=== PATIENT | male | born 1985 | race Caucasian/White ===

== ENCOUNTER 2017-12-08 17:51 | Emergency (ER) | payer BC ==
[~2017-12-08] VITALS: Ht 190.5 cm; Wt 84.1 kg
[2017-12-08 18:13] VITALS: Ht 190.5 cm; Wt 84.1 kg
[2017-12-08] MEDS ORDERED: MIRALAX527 GM PO (21:39)
[2017-12-08 22:05] VITALS: BP 122/82
== END 2017-12-08 22:06 | disposition home or self-care (01) ==
LOC: D.ER 17:51
DX: K59.00 Constipation, unspecified (principal); M54.5 Low back pain

== ENCOUNTER → 2018-03-11 18:20 | Outpatient (CLI) | payer BC ==
[2017-12-08 18:13] VITALS: BMI 23.1
[~2018-03-11 18:20] MED LIST: MIRALAX527 GM PO
== END | disposition home or self-care (01) ==
LOC: D.LABREF 18:20
PROVIDERS: Family Medicine
DX: K59.00 Constipation, unspecified (principal)

== ENCOUNTER 2019-01-24 18:34 | Observation (INO) | payer BC ==
[~2019-01-24] VITALS: Ht 190.5 cm; Wt 81.8 kg
[2019-01-24 19:52] LABS: BASOPHILS 0.3 % (0-2); EOSINOPHILS 7.8 % (0-7); HEMATOCRIT 44.6 % (42.0-54.0); HEMOGLOBIN 14.8 g/dL (13.5-17.5); IMMATURE GRANULOCYTES 0.2 % (0-5); LYMPHOCYTES 24.3 % (15-50); MCHC 33.2 g/dL (31.0-37.0); MCV 96.3 fL (80.0-100.0); MEAN PLATELET VOLUME 9.8 fL (7.4-10.4); MONOCYTES 10.4 % (2-11); PLATELET COUNT 245 10x3/uL (130-400); RBC 4.63 10x6/uL (4.20-6.10); RDW 12.9 % (11.5-14.5); WBC 9.7 10x3/uL (4.8-10.8)
[2019-01-24 20:05] LABS: APTT 31.6 SECONDS (22.8-39.4); INR 1.05 (0.85-1.17); PROTIME 13.2 SECONDS (11.6-15.0)
[2019-01-24 20:06] LABS: CALC OSMOLALITY 278 mosm/kg (275-300); CALCIUM 8.8 mg/dL (8.5-10.1); CARBON DIOXIDE 30.1 mmol/L (21.0-32.0); CHLORIDE - SERUM 103 mmol/L (98-107); GLUCOSE 82 mg/dL (74-106); POTASSIUM - SERUM 3.7 mmol/L (3.5-5.1); SODIUM 140 mmol/L (136-145); UREA NITROGEN 15 mg/dL (7-18); eGFR NON AFRICAN AMERICAN > 90 mL/min (90-120)
[2019-01-24 20:11] LABS: ALBUMIN 4.4 g/dL (3.4-5.0); ALKALINE PHOSPHATASE 53 U/L (46-116); ALT (SGPT) 24 U/L (10-68); AMYLASE - SERUM 62 U/L (25-115); BILIRUBIN - TOTAL 0.54 mg/dL (0.2-1.3); LIPASE 148 U/L (73-393); PROTEIN - SERUM 7.4 g/dL (6.4-8.2)
[2019-01-24 21:23] LABS: HEMATOCRIT 40.9 % (42.0-54.0); HEMOGLOBIN 13.7 g/dL (13.5-17.5)
[2019-01-24 22:26] VITALS: BP 104/72; BMI 22.5
--- NOTE | 2019-01-24 22:30 | NUR ---
RECEIVED PT FROM ER. A/O WITH NO SIGNS OF ACUTE DISTRESS. IV TO THE RT AC WITH NO REDNESS OR SWELLING. EDUCATED PT ON DIET AND PLACED HAT IN BATHROOM TO MONITOR BM. REPORTS MIDLINE ABDOMINAL TENDERNESS UPON PALPATION. GAVE APPLE JUICE AND WATER. DENIES OTHER NEEDS AT THIS TIME. CONTINUE WITH PLAN OF CARE.
[2019-01-25 04:00] VITALS: BP 95/53
[2019-01-25 04:28] LABS: BASOPHILS 0.3 % (0-2); EOSINOPHILS 10.7 % (0-7); HEMATOCRIT 42.7 % (42.0-54.0); HEMOGLOBIN 14.1 g/dL (13.5-17.5); IMMATURE GRANULOCYTES 0.1 % (0-5); LYMPHOCYTES 33.1 % (15-50); MCH 31.5 pg (26.0-34.0); MCV 95.5 fL (80.0-100.0); MEAN PLATELET VOLUME 10.3 fL (7.4-10.4); MONOCYTES 11.6 % (2-11); NEUTROPHILS 44.2 % (40-80); PLATELET COUNT 241 10x3/uL (130-400); RBC 4.47 10x6/uL (4.20-6.10); RDW 12.8 % (11.5-14.5)
[2019-01-25 04:34] LABS: WBC 6.9 10x3/uL (4.8-10.8)
[2019-01-25 04:55] LABS: ALBUMIN 3.7 g/dL (3.4-5.0); ALKALINE PHOSPHATASE 46 U/L (46-116); ALT (SGPT) 24 U/L (10-68); BILIRUBIN - TOTAL 1.06 mg/dL (0.2-1.3); CALC OSMOLALITY 277 mosm/kg (275-300); CALCIUM 8.4 mg/dL (8.5-10.1); CARBON DIOXIDE 29.6 mmol/L (21.0-32.0); CHLORIDE - SERUM 104 mmol/L (98-107); GLUCOSE 78 mg/dL (74-106); POTASSIUM - SERUM 3.4 mmol/L (3.5-5.1); PROTEIN - SERUM 6.4 g/dL (6.4-8.2); SODIUM 140 mmol/L (136-145); UREA NITROGEN 13 mg/dL (7-18)
[2019-01-25 04:56] LABS: CREATININE - SERUM 0.7 mg/dL (0.6-1.3); eGFR NON AFRICAN AMERICAN > 90 mL/min (90-120)
[2019-01-25 08:26] VITALS: BP 100/49
--- NOTE | 2019-01-25 08:41 | NUR ---
PT LYING IN BED ON PHONE WITH SPOUSE AT BEDSIDE, NO NEEDS VOICED BED IN LOW POSITION CALL LIGHT IN REACH ADVISED TO PUSH LIGHT IF ANYTHING NEEDED.
[2019-01-25 09:07] LABS: HEMATOCRIT 44.9 % (42.0-54.0); HEMOGLOBIN 14.8 g/dL (13.5-17.5)
--- NOTE | 2019-01-25 09:22 | NUR ---
PATIENT AND SPOUSE WENT OUTSIDE, NO NEEDS VOICED ADVISED PT TO COME BACK CAROLEE SO HE WILL NOT MISS DOCTOR. CONTINUE WITH PLAN OF CARE
[2019-01-25 13:16] VITALS: Ht 190.5 cm; Wt 81.8 kg
[2019-01-25] MEDS ORDERED: ARISTOCORT 0.5%15 GM TOPICAL (13:17)
--- NOTE | 2019-01-25 14:43 | NUR ---
I have reviewed this patient and I concur with the Shift Assessment completed by the Licensed Practical Nurse today this shift.
== END 2019-01-25 14:58 | disposition home or self-care (01) ==
LOC: D.ER 18:34 → D.MS 21:16 → OBSVTIME 21:18 → D.MS 01-25 14:58
PROVIDERS: Family Medicine; ADMIT Family Medicine; ATTEND Family Medicine
DX: K92.2 Gastrointestinal hemorrhage, unspecified (principal); K59.00 Constipation, unspecified; M54.5 Low back pain; F17.200 Nicotine dependence, unspecified, uncomplicated